=== PATIENT | male | born 1930 | race Caucasian/White ===

== ENCOUNTER 2016-09-12 07:49 | Day surgery (SDC) | payer MEDICARE, OTHER ==
[~2016-09-12 07:49] MED LIST: Lactated Ringers 1,000 ML IV SCH; Sodium Chloride 0.9% 10 ML Syringe FLUSH PRN
[2016-09-12] MEDS ORDERED: Propofol 200 MG/20 ML SDV IV ONE (09:30)
[2016-09-12] MEDS ORDERED: Lidocaine 2% 100 MG/5 ML Syringe IVPUSH ONE (09:30)
--- NOTE | 2016-09-12 10:09 | PCM.OPNOTE ---
- General Post-Op/Procedure Note Date of Surgery/Procedure: 09/12/16 Operative Procedure(s): egd with biopsy. c scope Findings: hemorrhagic gastritis hiatal hernia normal colon Pre Op Diagnosis: iron def anemia Post-Op Diagnosis: hemorrhagic gastritis. hiatal hernia. normal colon Anesthesia Technique: MAC Primary Surgeon: Gabino Douglas Anesthesia Provider: Brenton Fritz Pathology: gastric mucosa Complications: None Condition: Good Free Text/Narrative:: see dictation
[2016-09-12 11:05] VITALS: BP 116/57
--- NOTE | 2016-09-12 14:01 | OR ---
DATE OF OPERATION: 09/12/2016 SURGEON: Gabino Douglas MD PROCEDURE PERFORMED: Esophagogastroduodenoscopy with cold forceps biopsy and colonoscopy. PREOPERATIVE DIAGNOSIS: Iron deficiency anemia. POSTOPERATIVE DIAGNOSIS: Hemorrhagic gastritis and normal colon. INDICATIONS FOR PROCEDURE: This 85-year-old, white male, who is referred for the above-mentioned complaint was offered and accepted upper and lower endoscopy to evaluate his colon. DESCRIPTION OF OPERATION: After an excellent IV sedation was administered, the bite block was inserted. The flexible colonoscope was inserted and advanced without difficulty down the esophagus into the stomach. The stomach was insufflated. The scope was passed through the pylorus to the second portion of duodenum and slowly withdrawn. The following findings were noted. Duodenum was unremarkable. Stomach demonstrated a hiatal hernia and diffuse gastritis. Multiple biopsies were taken. He also had evidence of old hemorrhage. The esophagus was essentially unremarkable except for the GE junction, being approximately 32 cm. Attention was then turned to the colon. Digital rectal exam was performed. No marked abnormality was noted. Flexible colonoscope was inserted and advanced to the cecum without difficulty. Then slowly withdrawn, the colonic mucosa was carefully inspected. The following findings were noted. Ascending colon, unremarkable. Transverse colon, unremarkable. Descending colon, unremarkable. Sigmoid and rectum unremarkable. Colon was deflated as the scope was removed. The patient tolerated the procedure well, and was taken to recovery room in good condition. /[id number] /MODL
== END 2016-09-12 11:15 | disposition home or self-care (01) ==
LOC: FB.SDS 07:49
PROVIDERS: ATTEND Surgery
DX: K29.71 Gastritis, unspecified, with bleeding (principal); K44.9 Diaphragmatic hernia without obstruction or gangrene; D50.9 Iron deficiency anemia, unspecified; Z86.010 Personal history of colon polyps; I25.10 Atherosclerotic heart disease of native coronary artery without angina pectoris; M51.37 Other intervertebral disc degeneration, lumbosacral region; M10.9 Gout, unspecified; R42 Dizziness and giddiness; M48.06 Spinal stenosis, lumbar region; I73.9 Peripheral vascular disease, unspecified; Z98.890 Other specified postprocedural states; Z87.891 Personal history of nicotine dependence; Z79.82 Long term (current) use of aspirin; Z79.899 Other long term (current) drug therapy
CPT/HCPCS: 00740; 43239; 45378; 88305; 88342; J2704; J7120

== ENCOUNTER 2017-08-07 15:22 | Emergency (ER) | payer MEDICARE, OTHER ==
--- NOTE | 2017-08-07 16:02 | EDM.PDOC ---
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 A recent Abd Pelvic CT 3 weeks ago noted extensive pulmonary mets and markedly enlarging L kidney mass. He presents today with midline and L sided abdominal pains. Pain is cramping, aching, and nonradiating. There is no nausea or vomiting, diarrhea or recent constipation. He has not enrolled in hospice. Abdominal Pain Score (Numeric/FACES): 6 - Related Data Allergies Allergy/AdvReac Type Severity Reaction Status Date / Time No Known Allergies Allergy Verified 08/07/17 15:29 Home Meds: Home Meds Aspirin [Halfprin] 81 mg PO DAILY 09/11/16 [History] Citalopram Hydrobromide [Celexa] 40 mg PO DAILY 09/11/16 [History] Desoximetasone [Topicort 0.25% Crm] 1 applic TOP BID 09/11/16 [History] Multivitamin with Minerals [Multiple Vitamin] 1 tab PO DAILY 09/11/16 [History] Sennosides/Docusate Sodium [Senna-Docusate Sodium] 1 each PO DAILY PRN 09/11/16 [History] Tamsulosin [Flomax] 0.4 mg PO DAILY 09/11/16 [History] Past Medical History HEENT History: Reports: Cataract Cardiovascular History: Reports: CAD Gastrointestinal History: Reports: Colon Polyp Musculoskeletal History: Reports: Gout Other Musculoskeletal History: DJD OF LUMBAR/SACRAL INTERVERTEBAL, SPINAL STENOSIS Psychiatric History: Reports: Depression Hematologic History: Reports: Anemia, Other (See Below) Other Hematologic History: CURRENTLY HAS ISSUES WITH ANEMIA, DENIES ANY BLOOD TRANSFUSION EYT. Oncologic (Cancer) History: Reports: Renal Dermatologic History: Reports: Psoriasis Other Dermatologic History: PT USES PRESCRIPTION CREAM PRN - Infectious Disease History Infectious Disease History: Reports: Chicken Pox, Measles, Mumps, Shingles - Past Surgical History GI Surgical History: Reports: Appendectomy, Colonoscopy, Hernia, Abdominal Neurological Surgical History: Reports: Laminectomy Other Musculoskeletal Surgeries/Procedures:: LAMINECTOMY L3, FORAMINOTOMY LEFT L4-5 Social & Family History - Family History Family Medical History: Noncontributory - Tobacco Use Smoking Status *Q: Never Smoker - Caffeine Use Caffeine Use: Reports: Coffee, Soda Other Caffeine Use: 3 CUPS A DAY. - Recreational Drug Use Recreational Drug Use: No ED ROS GENERAL - Review of Systems Review Of Systems: See Below Constitutional: Reports: Malaise, Weakness, Weight Loss HEENT: Reports: No Symptoms Respiratory: Reports: No Symptoms Cardiovascular: Reports: No Symptoms Endocrine: Reports: Fatigue GI/Abdominal: Reports: Abdominal Pain, Decreased Appetite : Reports: No Symptoms Musculoskeletal: Reports: No Symptoms Skin: Reports: No Symptoms Neurological: Reports: No Symptoms Psychiatric: Reports: No Symptoms Hematologic/Lymphatic: Reports: Anemia Immunologic: Reports: No Symptoms ED EXAM, GI/ABD - Physical Exam Exam: See Below Exam Limited By: No Limitations General Appearance: Alert, WD/WN, No Apparent Distress, Thin Head: Normocephalic Neck: Normal Inspection, Supple, Non-Tender Respiratory/Chest: Lungs Clear, Normal Breath Sounds, Chest Non-Tender Cardiovascular: Regular Rate, Rhythm, No Murmur GI/Abdominal Exam: Normal Bowel Sounds, Soft, Mass (LUQ firm irregular nonmovable mass) Back Exam: Normal Inspection Extremities: Normal Inspection, Normal Range of Motion, No Pedal Edema Neurological: Alert, Oriented, CN II-XII Intact, No Motor/Sensory Deficits Psychiatric: Depressed Mood, Flat Affect Skin Exam: Warm, Dry Lymphatic: No Adenopathy Course - Vital Signs Text/Narrative:: The CBC notes a Hgb 9.0 gm, WBC 7,400, plts 400,00; UA pending; F&U abdomen: mod stool, no A/F levels. A Percocet 5/325 tab was administered in the ED. Last Recorded V/S: Last Vital Signs Temp 36.6 C 08/07/17 15:30 Pulse 99 08/07/17 15:30 Resp 18 08/07/17 15:30 BP 161/63 H 08/07/17 15:30 Pulse Ox 95 08/07/17 15:30 - Orders/Labs/Meds Orders: Active Orders 24 hr Category Date Time Status Abdomen 2V AP Flat Upright [CR] Stat Exams 08/07/17 15:55 Ordered URINALYSIS W/MICROSCOPIC [UA W/MICROSCOPIC] [URIN] Stat Lab 08/07/17 15:55 Ordered Labs: Laboratory Tests 08/07/17 Range/Units 16:05 WBC 7.4 (4.5-12.0) X10-3/uL RBC 3.73 L (4.30-5.75) x10(6)uL Hgb 9.0 L (11.5-15.5) g/dL Hct 29.3 L (30.0-51.3) % MCV 78.5 L (80-96) fL MCH 24.1 L (27.7-33.6) pg MCHC 30.7 L (32.2-35.4) g/dL RDW 19.7 H (11.5-15.5) % Plt Count 410 H (125-369) X10(3)uL MPV 6.8 L (7.4-10.4) fL Neut % (Auto) 82.9 H (46-82) % Lymph % (Auto) 10.3 L (13-37) % Stephenson % (Auto) 6.2 (4-12) % Eos % (Auto) 0 L (1.0-5.0) % Baso % (Auto) 0 (0-2) % Neut # (Auto) 6.1 (1.6-8.3) # Lymph # (Auto) 0.8 (0.6-5.0) # Stephenson # (Auto) 0.5 (0.0-1.3) # Eos # (Auto) 0.0 (0.0-0.8) # Baso # (Auto) 0.0 (0.0-0.2) # Meds: Medications Discontinued Medications Generic Name Dose Route Start Last Admin Trade Name Freq PRN Reason Stop Dose Admin Oxycodone/Acetaminophen 1 tab 08/07/17 16:09 08/07/17 16:24 Percocet 325-5 Mg PO 08/07/17 16:10 1 tab ONETIME ONE Administration Departure - Departure Time of Disposition: 16:29 Disposition: Home, Self-Care 01 Condition: Fair Clinical Impression: Abdominal pain Qualifiers: Abdominal location: lower abdomen, unspecified Qualified Code(s): R10.30 - Lower abdominal pain, unspecified Renal cell cancer Qualifiers: Laterality: left Qualified Code(s): C64.2 - Malignant neoplasm of left kidney, except renal pelvis - Discharge Information Referrals: Fabrizio Summers MD [Primary Care Provider] - Forms: ED Department Discharge - Problem List & Annotations (1) Abdominal pain SNOMED Code(s): 72478047 Code(s): R10.9 - UNSPECIFIED ABDOMINAL PAIN Status: Acute Current Visit: Yes Annotation/Comment:: Lucy was administered Percocet 5/325 tab in the ED. An appt with Hospice was made for tomorrow for managment. I also suggested MiraLax daily for bowel maintenance. Qualifiers: Abdominal location: lower abdomen, unspecified Qualified Code(s): R10.30 - Lower abdominal pain, unspecified (2) Renal cell cancer SNOMED Code(s): 619910879 Code(s): C64.9 - MALIGNANT NEOPLASM OF UNSP KIDNEY, EXCEPT RENAL PELVIS Status: Acute Current Visit: Yes Annotation/Comment:: Appt for Hospice made for tomorrow. Prognosis is poor. Qualifiers: Laterality: left Qualified Code(s): C64.2 - Malignant neoplasm of left kidney, except renal pelvis - Problem List Review Problem List Initiated/Reviewed/Updated: Yes - My Orders Last 24 Hours: My Active Orders 08/07/17 15:55 Abdomen 2V AP Flat Upright [CR] Stat URINALYSIS W/MICROSCOPIC [UA W/MICROSCOPIC] [URIN] Stat - Assessment/Plan Last 24 Hours: My Active Orders 08/07/17 15:55 Abdomen 2V AP Flat Upright [CR] Stat URINALYSIS W/MICROSCOPIC [UA W/MICROSCOPIC] [URIN] Stat Plan: Follow up with Hospice and PCP.
[2017-08-07] MEDS ORDERED: Acetaminophen/oxyCODONE 325-5 MG Tab PO ONE (16:09)
[2017-08-07 17:31] VITALS: BP 178/73
--- NOTE | 2017-08-09 11:12 | CR ---
INDICATION: Abdominal pain, history of metastatic renal cell CA. 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 Degenerative disk disease is also noted at L3-4, L4-5, and possibly L5-S1. Slightly demineralized appearance raises question of osteomalacia or osteoporosis additionally. Calcific density is noted overlying the right kidney and could represent a renal calculus. Multiple grommets are noted overlying the abdomen and lower chest on the left. The pattern of gas and feces is nonspecific, without evidence of free air or obstruction. Gas and stool is noted in the rectum. No definite organomegaly or mass lesions could be identified. IMPRESSION: 1. No definite acute abnormality identified. 2. Possible renal calculus overlying the mid pole area of the right kidney. 3. Degenerative changes, disk disease, scoliosis lumbosacral spine. 4. Possible osteoporosis - correlate clinically. MTDD
== END 2017-08-07 16:56 | disposition home or self-care (01) ==
LOC: FB.ED 15:22
DX: C64.2 Malignant neoplasm of left kidney, except renal pelvis (principal); C78.00 Secondary malignant neoplasm of unspecified lung; I25.10 Atherosclerotic heart disease of native coronary artery without angina pectoris; F32.9 Major depressive disorder, single episode, unspecified; Z79.82 Long term (current) use of aspirin; Z79.899 Other long term (current) drug therapy
CPT/HCPCS: 36415; 74019; 85025; 99283; 99284; A9270